=== PATIENT | female | born 1960 | race Caucasian/White ===

== ENCOUNTER 2021-03-31 11:18 | Emergency (ER) | payer MEDICARE, MEDICAID ==
[~2021-03-31] VITALS: Ht 152.4 cm; Wt 83.9 kg
[2021-03-31 12:59] VITALS: BP 127/86
== END 2021-03-31 13:00 | disposition home or self-care (01) ==
LOC: M.ERS 11:18
DX: Z20.822 Contact with and (suspected) exposure to COVID-19 (principal)